=== PATIENT | male | born 1950 | race Caucasian/White ===

== ENCOUNTER 2016-07-04 14:46 | Observation (INO) | payer OTHER ==
[2016-07-04] MEDS ORDERED: ONDANSETRON 4 MG/2 ML VIAL ONE (15:04)
[2016-07-04] MEDS ORDERED: ONDANSETRON 4 MG/2 ML VIAL IVP STA (15:15)
[2016-07-04] MEDS ORDERED: NITROGLYCERIN SL 0.4 MG TABLET SL ONE (15:15)
[2016-07-04] MEDS ORDERED: SODIUM CHLORIDE 0.9% 500 ML IV ONE ×2 (15:16→17:23)
[2016-07-04] MEDS ORDERED: ASPIRIN CHEW 81 MG TABLET PO STA (15:17)
[2016-07-04] MEDS ORDERED: ASPIRIN CHEW 81 MG TABLET ONE (15:20)
[2016-07-04] MEDS ORDERED: NITROGLYCERIN SL 0.4 MG TABLET SL STA (15:35)
[2016-07-04] MEDS ORDERED: MORPHINE 10 MG/ML VIAL IVP STA ×2 (16:02→17:23)
[2016-07-04] MEDS ORDERED: MAG HYDROX/AL HYDROX/SIMETH 30 ML UDC PO STA (16:02)
[2016-07-04] MEDS ORDERED: MORPHINE 10 MG/ML VIAL ONE (16:04)
[2016-07-04] MEDS ORDERED: MAG HYDROX/AL HYDROX/SIMETH 30 ML UDC ONE (16:04)
[2016-07-04] MEDS ORDERED: IOPAMIDOL-300 100 ML VIAL IVP ONE (17:10)
[2016-07-04] MEDS ORDERED: MORPHINE 2 MG/ML SYRINGE ONE ×2 (17:24)
[2016-07-04] MEDS ORDERED: METOPROLOL 5 MG/5 ML VIAL IVP STA (18:12)
[2016-07-04] MEDS ORDERED: METOPROLOL 5 MG/5 ML VIAL IVP ONE (18:16)
[2016-07-04] MEDS ORDERED: SODIUM CHLORIDE FLUSH 0.9% 10 ML SYRINGE IVP PRN (19:00)
[2016-07-04] MEDS ORDERED: ONDANSETRON ODT 4 MG TABLET TL PRN (19:00)
[2016-07-04] MEDS ORDERED: ONDANSETRON 4 MG/2 ML VIAL IVP PRN (19:00)
[2016-07-04] MEDS ORDERED: MORPHINE 2 MG/ML SYRINGE IVP PRN (19:00)
[2016-07-04] MEDS ORDERED: NITROGLYCERIN SL 0.4 MG TABLET SL PRN ×2 (19:00)
[2016-07-04] MEDS ORDERED: SODIUM CHLORIDE 0.9% 1,000 ML IV SCH (19:00)
[2016-07-04] MEDS ORDERED: ACETAMINOPHEN 325 MG TABLET PO PRN (19:00)
[2016-07-04] MEDS ORDERED: oxyCODONE 5 MG TABLET PO PRN (19:00)
[2016-07-04] MEDS: SODIUM CHLORIDE FLUSH 0.9% 10 ML SYRINGE IVP SCH (19:47)
[2016-07-04] MEDS: PANTOPRAZOLE 40 MG TABLET PO SCH (19:47)
[2016-07-04] MEDS ORDERED: INSULIN GLARGINE 300 UNIT/3 ML PEN SUBQ SCH (21:00)
[2016-07-04] MEDS ORDERED: INSULIN ASPART 300 UNIT/3 ML PEN SUBQ SCH (21:00)
[2016-07-05] MEDS: PANTOPRAZOLE 40 MG TABLET PO SCH (06:18)
[2016-07-05] MEDS: SODIUM CHLORIDE FLUSH 0.9% 10 ML SYRINGE IVP SCH (06:37)
[2016-07-05] MEDS ORDERED: INSULIN REGULAR HUMAN 100 UNIT/1 ML 10 ML MDV SUBQ SCH (07:00)
[2016-07-05] MEDS ORDERED: LISINOPRIL 5 MG TABLET PO SCH (09:00)
[2016-07-05] MEDS ORDERED: ATORVASTATIN 40 MG TABLET PO SCH (09:00)
[2016-07-05] MEDS ORDERED: POLYETHYLENE GLYCOL 3350 17 GM PACKET PO SCH (09:00)
== END 2016-07-05 11:58 | disposition home or self-care (01) ==
DX: R07.2 Precordial pain (principal); K44.9 Diaphragmatic hernia without obstruction or gangrene; K22.8 Other specified diseases of esophagus; S22.42XA Multiple fractures of ribs, left side, initial encounter for closed fracture; W18.09XA Striking against other object with subsequent fall, initial encounter; I10 Essential (primary) hypertension; E78.5 Hyperlipidemia, unspecified; E11.65 Type 2 diabetes mellitus with hyperglycemia; R00.0 Tachycardia, unspecified; K21.9 Gastro-esophageal reflux disease without esophagitis; K76.0 Fatty (change of) liver, not elsewhere classified; E66.9 Obesity, unspecified; J44.9 Chronic obstructive pulmonary disease, unspecified; Z79.84 Long term (current) use of oral hypoglycemic drugs; Z68.31 Body mass index [BMI] 31.0-31.9, adult; Z87.891 Personal history of nicotine dependence
CPT/HCPCS: 36415; 71010; 71275; 74246; 76705; 80048; 80053; 80061; 80074; 82728; 83036; 83690; 83735; 84484; 85025; 93005; 93010; 96361; 96374; 96375; 96376; 99284; 99285; A9270; G0378; J1815; Q9967

== ENCOUNTER 2017-03-31 20:58 | Outpatient (CLI) | payer MEDICARE, OTHER | END 2017-03-31 20:59 | disposition EMS.NT | LOC: EMS 20:58 | PROVIDERS: ATTEND Surgery | DX: F10.129 Alcohol abuse with intoxication, unspecified (principal) ==

== ENCOUNTER 2018-03-29 22:13 | Emergency (ER) | payer MEDICARE, OTHER ==
[2018-03-29 22:24] VITALS: BP 164/84
--- NOTE | 2018-03-29 22:30 | ED Physician Documentation ---
PD HPI LOWER EXT INJURY - Stated complaint Stated Complaint: LF BIG TOE INJ - Chief complaint Chief Complaint: Ext Problem - History obtained from History obtained from: Patient - History of Present Illness PD HPI LOW EXT INJURY LOCATION: Left, Toe Type of injury: Fall, Blunt / blow (he struck hit toe this evening, with pain and swelling initially to it. The toe injury did lead to fall and he struck forehead lightly. Pain is improving enroute here.) Where injury occurred: Home Timing - onset: Today Timing - details: Abrupt onset Associated symptoms: Swelling. No: Weakness, Numbness Similar symptoms before: Has not had sx before Recently seen: Clinic (has been seen for low back pain on the right and has seen chiropractor as well. Pain improving slowly over the past week or so, but still hurts with ROM.) Review of Systems Musculoskeletal: reports: Back pain Neurologic: denies: Focal weakness, Numbness PD PAST MEDICAL HISTORY - Past Medical History Past Medical History: Yes Cardiovascular: None Respiratory: Asthma, COPD Endocrine/Autoimmune: Type 2 diabetes Musculoskeletal: Chronic back pain - Past Surgical History Past Surgical History: Yes - Present Medications Home Medications: Ambulatory Orders Medication Instructions Recorded Confirmed Atorvastatin Calcium [Lipitor] 40 mg PO DAILY 07/04/16 07/04/16 Fluticasone/Salmeterol [Advair 1 puffs PO DAILY 07/04/16 07/04/16 100-50 Diskus] Montelukast [Singulair] 10 mg PO DAILY 07/04/16 07/04/16 metFORMIN [Glucophage] 500 mg PO QDBREAKFAST 07/04/16 07/05/16 Lisinopril [Zestril] 2.5 mg PO DAILY #30 tablet 07/05/16 HYDROcod/ACETAM 5/325 [[place] 5/325] 1 - 2 ea PO Q6H PRN 03/29/18 03/29/18 - Allergies Allergies/Adverse Reactions: Allergies Allergy/AdvReac Type Severity Reaction Status Date / Time No Known Drug Allergies Allergy Verified 07/04/16 14:57 - Social History Does the pt smoke?: No Smoking Status: Never smoker Does the pt drink ETOH?: No Does the pt have substance abuse?: No - Immunizations Immunizations are current?: Yes PD ED PE NORMAL - Vitals Vital signs reviewed: Yes - General General: Alert and oriented X 3, No acute distress, Well developed/nourished - HEENT HEENT: Atraumatic (forehead with mild local soft tissue tenderness. ) - Neck Neck: Supple, no meningeal sign, No bony TTP - Back Back: No spinal TTP (but has some local tenderness right SI joint area that he says was bothering him prior to the injury this evening. No rash nor sores. ) - Derm Derm: Normal color, Warm and dry Results - Vitals Vitals: Vital Signs - 24 hr 03/29/18 22:21 Temperature 35.9 C L Heart Rate 88 Respiratory 18 Rate Blood Pressure 164/84 H O2 Saturation 95 Oxygen O2 Source Room air - Rads (name of study) great toe left Radiology: Prelim report reviewed, EMP read contemporaneously (dorsal chip fracture proximal part of distal phalanx. ) PD MEDICAL DECISION MAKING - ED course Complexity details: reviewed results (dorsal chip fracture of toe. ), considered differential (Great toe with some tenderness and will get xray. He is having right low back pain still and has tender spot around right SI area. I did trigger point injection with marcaine/Kenalog there tangential to his visit for the toe injury here. ), d/w patient Departure - Departure Disposition: 01 Home, Self Care Clinical Impression: Fracture of great toe Qualifiers: Encounter type: initial encounter Fracture type: closed Phalanx: distal Fracture alignment: displaced Laterality: left Qualified Code(s): S92.422A - Displaced fracture of distal phalanx of left great toe, initial encounter for closed fracture Condition: Stable Record reviewed to determine appropriate education?: Yes Instructions: ED Fx Toe Closed Follow-Up: Justino Adams DO [Primary Care Provider] - Comments: Activity as tolerated with the toe. He will be mostly tender at the first several days to week or so. He will take about a month to fully heal up and so will be tender along the way. There is just a small corner chip fracture off the middle part of the toe. It does not need fixing per se. A firm soled shoe could be used to reduce flexion and movement. Tylenol or ibuprofen if needed for pains. Use your hydrocodone pain medicine for your back as needed for the toe.
[2018-03-29] MEDS ORDERED: TRIAMCINOLONE 40 MG/ML VIAL IM STA (22:44)
[2018-03-29] MEDS ORDERED: BUPIVACAINE 0.5%-EPI 1:200000 PF 10 ML VIAL SUBQ STA (22:44)
--- NOTE | 2018-03-29 23:22 | XRAY Report ---
Reason: stubbed toe, bruised Procedure Date: 03/29/2018 Accession Number: [id number] / [id number] Procedure: XR - Toe(s) LT CPT Code: FULL RESULT: EXAM: LEFT GREAT TOE RADIOGRAPHY EXAM DATE: 03/29/2018 11:11 PM. CLINICAL HISTORY: Stubbed toe. Bruised. COMPARISON: None. TECHNIQUE: 3 views. FINDINGS: Bones: Lateral film shows a displaced dorsal corner fracture off the distal phalanx. No other bony abnormalities. Joints: Normal. No subluxations. Soft Tissues: Unremarkable. IMPRESSION: Displaced dorsal corner fracture off the distal phalanx. RADIA
== END 2018-03-29 23:32 | disposition home or self-care (01) ==
LOC: ED 22:13
DX: S92.422A Displaced fracture of distal phalanx of left great toe, initial encounter for closed fracture (principal); W22.09XA Striking against other stationary object, initial encounter; W18.30XA Fall on same level, unspecified, initial encounter; Y92.009 Unspecified place in unspecified non-institutional (private) residence as the place of occurrence of the external cause; M54.5 Low back pain; E11.9 Type 2 diabetes mellitus without complications; J44.9 Chronic obstructive pulmonary disease, unspecified; Z79.84 Long term (current) use of oral hypoglycemic drugs
CPT/HCPCS: 20552; 73660; 99282; 99283

== ENCOUNTER 2018-04-12 17:17 | Outpatient (CLI) | payer MEDICARE, OTHER ==
--- NOTE | 2018-04-13 21:33 | MRI Report ---
Reason: LUMBAR RADICULOPATHY - ?L3-L4 Procedure Date: 04/12/2018 Accession Number: [id number] / [id number] Procedure: MRI - Lumbar Spine W/O CPT Code: FULL RESULT: EXAM: MRI LUMBAR SPINE WITHOUT CONTRAST. EXAM DATE: 04/12/2018 06:49 PM. CLINICAL HISTORY: Lumbar radiculopathy - ? L3-L4. COMPARISON: None. TECHNIQUE: Multiplanar, multisequence T1-weighted and fluid-sensitive sequences of the lumbar spine from T12 to S1 without contrast. Other: None. FINDINGS: Spinal Canal: The conus terminates at L1-L2. The conus medullaris and cauda equina are unremarkable. Alignment: There is normal lumbar lordosis. There is 2 mm retrolisthesis of L2 on L3. No evidence for pars interarticularis defects. Bone Marrow: Five [id number] lumbar vertebral bodies are assumed. No gross fractures or bone lesions. No bone marrow replacement. T1 and T2 hyperintense type II endplate marrow changes along the superior L1 endplate and along L2-L3 endplates. Schmorl's node degenerative changes at the inferior L1 and L2 endplates. Minimal T2 hyperintense edema around the inferior L1 Schmorl's node. Disk Levels/Facets: T10-T11: Disk desiccation. Annular bulge. Mild canal and mild foraminal narrowing. T11-T12: Disk desiccation and annular bulge. Mild foraminal narrowing. Mild canal narrowing. T12-L1: Disk desiccation. No significant canal or foraminal narrowing. L1-L2: Disk desiccation. No significant canal or foraminal narrowing. L2-L3: Retrolisthesis. Moderate disk height loss. Annular bulge with the right foraminal/extraforaminal broad-based protrusion. Right foraminal disk extrusion cephalad to the disk level, likely impinging the right L2 nerve root, measuring 12 x 7 x 6 mm. Severe right and mild to moderate left foraminal narrowing. Mild right subarticular narrowing. No significant canal narrowing. L3-L4: Disk desiccation. Annular bulge. No significant canal narrowing. Mild foraminal narrowing. L4-L5: Disk desiccation and annular bulge. Mild to moderate bilateral foraminal narrowing. No significant canal or subarticular narrowing. L5-S1: Disk desiccation. Posterior central shallow protrusion without effacing the thecal sac. Mild foraminal narrowing. No significant canal or subarticular narrowing. Musculature: Normal. No edema or fatty atrophy. Other: The partially visualized retroperitoneum is unremarkable. IMPRESSION: 1. No marrow edema to suggest fracture. 2. Grade 1, 2 mm retrolisthesis of L2 on L3. 3. At L2-L3, annular bulge with a broad-based right foraminal/extraforaminal protrusion. There is a cephalad right foraminal disk extrusion measuring 12 x 7 x 6 mm likely impinging the right L2 nerve root, could be correlated with right L2 radiculopathy. Severe right and mild to moderate left foraminal narrowing. Comment: The following findings are so common in adults without low back pain that while we report their presence, they must be interpreted with caution and in the context of the clinical situation. (Reference Arnaudk et al, Spine 2001) Prevalence of findings in patients without low back pain: Disk degeneration (any evidence): 92% Disk desiccation/T2 signal loss: 83% Disk height loss: 56% Disk bulge: 64% Disk protrusion: 32% Annular tear/high intensity zone: 38% RADIA
== END 2018-04-12 17:18 | disposition home or self-care (01) ==
LOC: DI 17:17
PROVIDERS: ATTEND Family Medicine
DX: M51.36 Other intervertebral disc degeneration, lumbar region (principal); M51.34 Other intervertebral disc degeneration, thoracic region; M51.26 Other intervertebral disc displacement, lumbar region; M43.16 Spondylolisthesis, lumbar region; M51.27 Other intervertebral disc displacement, lumbosacral region; M48.061 Spinal stenosis, lumbar region without neurogenic claudication; M48.07 Spinal stenosis, lumbosacral region
CPT/HCPCS: 72148

== ENCOUNTER 2020-04-11 12:58 | Outpatient (CLI) | payer MEDICARE, OTHER | END 2020-04-11 12:59 | disposition home or self-care (01) | LOC: LAB 12:58 | PROVIDERS: ATTEND Family Medicine | DX: Z11.59 Encounter for screening for other viral diseases (principal); Z20.828 Contact with and (suspected) exposure to other viral communicable diseases ==

== ENCOUNTER 2020-04-27 09:31 | Outpatient (CLI) | payer MEDICARE, OTHER ==
--- NOTE | 2020-04-27 12:28 | Ultrasound Report ---
PROCEDURE: Aorta Screening INDICATIONS: AAA SCREENING, HX OF TOBACCO USE TECHNIQUE: Real time scanning was performed of the aorta and iliac arteries, with image documentatio n. COMPARISON: None FINDINGS: Aorta: Proximal aortic diameter measures 2.6 x 2.2 cm. Mid-aorta measures 2.8 x 2.8 cm. Distal aor tic diameter is 1.7 x 1.8 cm. Iliac arteries: Right common iliac artery measures 1.1 x 0.9 cm. Left common iliac artery measures 0.9 x 1.0 cm. IMPRESSION: No abdominal aortic aneurysm. Reviewed by: Camron Gonzalez on 04/27/2020 12:27 PM PST Approved by: Camron Gonzalez on 04/27/2020 12:27 PM PST Station ID: [id number]
== END 2020-04-27 09:32 | disposition home or self-care (01) ==
LOC: DI 09:31
PROVIDERS: ATTEND Physician Assistant Medical
DX: Z13.6 Encounter for screening for cardiovascular disorders (principal)

== ENCOUNTER 2020-07-20 16:47 | Outpatient (CLI) | payer MEDICARE, OTHER ==
--- NOTE | 2020-07-20 17:18 | XRAY Report ---
PROCEDURE: Chest 2 View X-Ray INDICATIONS: EMPHYSEMA, ASTHMA TECHNIQUE: 2 view(s) of the chest. COMPARISON: None. FINDINGS: Surgical changes and devices: None. Lungs and pleura: No pleural effusions or pneumothorax. Lungs are clear. Mediastinum: Mediastinal contours are normal. Heart size is normal. Bones and chest wall: No suspicious bony abnormalities. Soft tissues appear unremarkable. IMPRESSION: Normal for age, source of current symptoms is not seen. Reviewed by: Tenzin Recinos MD on 07/20/2020 5:16 PM PST Approved by: Tenzin Recinos MD on 07/20/2020 5:16 PM PST Station ID: [id number]
== END 2020-07-20 16:48 | disposition home or self-care (01) ==
LOC: DI.N 16:47
PROVIDERS: ATTEND Family Medicine
DX: J43.9 Emphysema, unspecified (principal)

== ENCOUNTER 2020-09-20 14:48 | Outpatient (CLI) | payer MEDICARE, OTHER ==
[2020-09-20 15:45] VITALS: BP 158/91
--- NOTE | 2020-09-20 15:45 | SLEEP CARE CONSULTATION ---
Information from patient questionnaire entered by Popeye Nazario. I have reviewed and concur with the information entered by Popeye Nazario. This document represents the service I personally performed and the decisions made by me, Namrata Starkey ARNP. History of Present Illness Service Date and Time: 09/20/2020 1448 Reason for Visit: New patient Chief Complaint: reports: Unrefreshed sleep, Snoring, Observed pauses in breathing, Frequent awakenings at night Date of Onset: 30 yrs Usual bedtime: 11 PM Time it takes to fall asleep: 5 min Snores at night: Yes Observed to quit breathing while asleep: Yes Sleeps alone due to snoring: Yes Number of times waking at night: Several Reasons for waking at night: reports: Snoring (infrequent), Other (Unknown) Toss, Turn, or Twitch while sleeping: Yes Recalls having dreams: Yes Usually gets out of bed at: 7 Feels refreshed in the morning: No Morning headache: No Sleepy or fatigued during the day: Yes Ever fallen asleep while driving: No Takes day naps: Yes (since weather has improved not taking naps; falls asleep TV/news) Dreams during day naps: No Prior sleep studies: Yes Year and Where: [place] 1990 Additional HPI information: I had the pleasure of seeing CAITLIN BARTHOLOMEW today regarding the possibility of him having a sleep disorder. His current complaints are snoring, unrefreshed sleep, frequent night awakenings and observed pauses in breathing. He was originally diagnosed with sleep apnea in 1990 and used a CPAP for a few weeks but was unable to tolerate it and has not been using the CPAP since 1990. He returns for reevaluation due to his 's concern that his pauses in breathing are getting longer and his oxygen level is at 95% in the morning. He is unsure if this is too low but states when he had his sleep study his oxygen level went down in the 60s. He states if he stays busy he does fine but if he sits down to watch TV and relaxes he will fall asleep. He was taking a daily nap during the winter but since the weather has been better he is out working in his yard instead of falling asleep. His father had sleep apnea and used a machine. - Parasomnia Symptoms Ever been unable to move upon waking from sleep: Yes Walks in sleep: No Talks in sleep: No Ever acted out dreams in sleep: No Ever felt weak in the knees when startled or emotional: No Bothered by creepy, crawly, restless sensations in legs: No Problems with memory or concentration: Yes Subjective Initial [place] Sleepiness Scale score: 8 (in 2020) Past Medical History Past Medical History: reports: Hypertension (in the past but got better and is not on any medications), Diabetes, Arthritis Social History The patient's occupation is a retiree. Patient is and lives in [place]. Have you smoked in the past 12 months: No Quit date: 1987 Alcohol use: Yes Alcohol amount and frequency: 6 oz, 2 or 3 times a week Caffeine use: Yes Caffeine amount and frequency: 8 cups daily Family History Family history of sleep disordered breathing: Yes Family Hx Sleep Apnea: Father: Snoring, Sleep apnea - Treated Allergies and Home Medications Drug allergies reviewed: Yes (NKDA) Home medication list reviewed: Yes Allergy and home medication list: Metformin aspirin Review of Systems Respiratory: reports: wheeze Ear/Nose/Throat: reports: dry mouth/throat, wisdom teeth removed. denies: tonsillectomy Musculoskeletal: reports: joint pain (stiffness) Physical Exam Blood Pressure: 158/91 ("hectic day") Cuff size: wrist Heart Rate: 83 O2 Saturation: 98 Height: 5 ft 10 in Weight: 221 lb Body Mass Index: 31.7 BMI Classification: Obese Heart: regular rate and rhythm Lungs: clear bilaterally Impression and Plan 1. Suspected Obstructive Sleep Apnea-Hypopnea Syndrome, as previously diagnosed in 1990 and does not have a copy of his last study. It is also suggested by a history of loud and irregular snoring, observed cessation of breath while asleep, frequent awakening during the night, unrefreshed sleep, and cognitive impairment. I recommend proceeding to polysomnography to confirm the diagnosis and to assess severity. I obtained agreement from the patient to proceed. The pathophysiology of obstructive sleep apnea-hypopnea syndrome was discussed with the patient and health risks of cardiovascular and cerebrovascular disease if not treated. Risks of drowsy driving discussed in detail and patient advised to avoid long distance driving and to chain puller at the first sign of drowsiness. Patient agreed to plan. * Schedule polysomnography +- manual CPAP titration study and return in 1-2 weeks after the study to discuss result and initiate therapy. * Avoid long distance driving or driving when feeling sleepy. * Avoid alcohol, sedative and muscle relaxant around bedtime. * Attempt to lose weight. * Review instructions provided by trained office staff on how to prepare for the sleep study. * Return for follow-up after sleep study completed. Counseling Topics: Weight loss health impact Visit Type: In Office Time Spent with Patient (minutes): 31 Provider Statement: I spent 100% of the Face to Face Visit with the patient with greater than 50% spent counseling the patient and coordination of care.
== END 2020-09-20 14:49 | disposition home or self-care (01) ==
LOC: SC 14:48
PROVIDERS: ATTEND Nurse Practitioner Family
DX: R06.81 Apnea, not elsewhere classified (principal); G47.8 Other sleep disorders; R41.89 Other symptoms and signs involving cognitive functions and awareness; R06.83 Snoring; E66.9 Obesity, unspecified; Z68.31 Body mass index [BMI] 31.0-31.9, adult; Z87.891 Personal history of nicotine dependence
CPT/HCPCS: 99203; G0463; 99212

== ENCOUNTER 2020-11-10 11:10 | Outpatient (CLI) | payer MEDICARE, OTHER ==
--- NOTE | 2020-11-10 14:05 | XRAY Report ---
PROCEDURE: Lumbar Spine 2 View INDICATIONS: ACUTE LOW BACK PAIN TECHNIQUE: 2 views of the lumbar spine were acquired. COMPARISON: None. FINDINGS: Bones: 5 [id number] vertebrae are present. There are degenerative changes at multiple levels w ith anterior osteophytes. There is disc space narrowing at L2-3. The sacroiliac joints are intact. Th ere is facet arthrosis at L5-S1. There is normal bony alignment. No vertebral body compression fract ures. No suspicious bony lesions. There is a fused osteophyte on the right at L1-2. Soft tissues: Overlying bowel gas pattern is normal. No suspicious soft tissue calcifications. IMPRESSION: Multilevel degenerative changes with disc disease at L2-3. Reviewed by: Camron Gonzalez on 11/10/2020 2:04 PM PDT Approved by: Camron Gonzalez on 11/10/2020 2:04 PM PDT Station ID: [id number]
== END 2020-11-10 11:11 | disposition home or self-care (01) ==
LOC: DI.N 11:10
PROVIDERS: ATTEND Physician Assistant
DX: M47.817 Spondylosis without myelopathy or radiculopathy, lumbosacral region (principal); M51.36 Other intervertebral disc degeneration, lumbar region; M48.061 Spinal stenosis, lumbar region without neurogenic claudication

== ENCOUNTER 2020-12-09 20:37 | Outpatient (CLI) | payer MEDICARE, OTHER | END 2020-12-09 20:38 | disposition home or self-care (01) | LOC: SC 20:37 | PROVIDERS: ATTEND Nurse Practitioner Family | DX: G47.33 Obstructive sleep apnea (adult) (pediatric) (principal) | CPT/HCPCS: 95810 ==

== ENCOUNTER 2020-12-15 15:20 | Outpatient (CLI) | payer MEDICARE, OTHER ==
--- NOTE | 2020-12-15 16:37 | SLEEP CARE CONSULTATION ---
Information from patient questionnaire entered by Jeanie Urrutia. I have reviewed and concur with the information entered by Jeanie Urrutia. This document represents the service I personally performed and the decisions made by , Namrata Starkey ARNP. History of Present Illness Service Date and Time: 12/15/2020 1520 Initial [place] Sleepiness Scale score: 8 (in 2020) Current [place] Sleepiness Scale score: 10 Additional HPI information: CAITLIN BARTHOLOMEW returns for follow up and results of the recently performed polysomnography. I explained the pathophysiology behind obstructive sleep apnea. We then spent quite a bit of time discussing different treatment options. For mild obstructive sleep apnea, surgery and oral appliance are alternatives to nasal CPAP therapy but in moderate or severe cases, nasal CPAP is the most effective and reliable treatment. Because apnea is primarily in supine position, then positional management therapy could be effective. Methods discussed such as positioning with pillows, using a T-shirt with tennis balls in the back, and shown commercial products that have a pillow format on back to prevent supine sleep. I reviewed the impact of weight changes on sleep apnea and strongly recommended losing weight. After some discussion, the patient opted to go with the nasal CPAP therapy. Nasal autoCPAP set at 4-15 cmH20 will be ordered with rationale explained. A manual titration study will be ordered if unable to find optimal pressure with office adjustments. I explained how CPAP machine works with sample devices Respironics Dreamstation and Res[employer] [id number] and what to expect when using the machine. Using CPAP every night in order to get used to it was emphasized. Patient advised to put CPAP mask on before getting into bed so as not to fall asleep without CPAP. To assist acclimation to CPAP use, it could also be used for a short time during day while reading or watching TV. The patient was instructed to call the CPAP supplier to discuss any mechanical problem that may occur. If the mask given is uncomfortable or is difficult to keep on through the night even with adjustment, contact the CPAP supplier as many will replace with another mask style if notified before 30 days. If snoring or perceives is not getting enough air or too much air from the machine, notify this office. [facility] patient education PAP tips reviewed and given to patient. Patient was cautioned about risks of drowsy driving until sleepiness symptoms resolve. Sleep Study - Results Type of Sleep Study: Polysomnography Prior sleep studies: Yes Year and Where: 2020 - [facility]; 1990 - [place], [place] Polysomnography/Home Sleep Study results: IMPRESSION: The quality of the study is good. The patient had reduced sleep efficiency as the patient was awake almost throughout the second half of the night. The sleep architecture was 32.5 7.1 1.7. Respiratory monitoring showed severe obstructive sleep apnea-hypopnea (AHI = 32.0) associated with frequent arousals, oxyhemoglobin desaturation and mild hypoxia (catherine oxygen saturation of 85%). The respiratory events occurred more frequently during supine sleep (supine AHI = 51.1; non-supine = 21.85). Snore was light to moderate in intensity. There was no significant periodic leg movement of sleep. Cardiac rhythm was normal sinus rhythm with frequent premature ventricular and atrial contractions. No abnormal behavior (parasomnia) observed during the night. Allergies and Home Medications Home medication list reviewed: Yes (no changes) Review of Systems Review of systems same as previous: Yes (no changes) Physical Exam Heart Rate: 88 O2 Saturation: 95 Height: 5 ft 10 in Weight: 218 lb Body Mass Index: 31.2 BMI Classification: Obese Impression and Plan 1. Obstructive Sleep Apnea-Hypopnea Syndrome, severe, with lowest oxygen saturation of 85%. Obviously this is the cause of the patients symptoms of unrefreshed sleep, and excessive daytime sleepiness. Positive pressure therapy could benefit diabetes. As mentioned above, the patient will be started on nasal autoCPAP therapy with pressure set at 4-15 cmH2O. A manual titration study will be completed if unable to find optimal treatment pressure with office adjustments. Compliance guidelines also reviewed. A copy of compliance guidelines will be given for reference at check out. 2. Hypoxia, mild. Patient had a catherine oxygen saturation of 85% with a total of 1.40 minutes spent under 89%. His oxygen saturation was normal with an average oxygen saturation of 94%. * Nasal auto CPAP therapy, pressure at 4-15 cm H2O. * Attempt to lose weight. * Avoid alcohol consumption near bedtime. * Avoid supine sleep until using CPAP. * The patient is again cautioned about driving until sleepiness completely resolves. * Return one month after CPAP obtained. I will assess response to therapy and compliance at that time. Counseling Topics: Weight loss health impact Visit Type: In Office Time Spent with Patient (minutes): 21 Provider Statement: I spent 100% of the Face to Face Visit with the patient with greater than 50% spent counseling the patient and coordination of care.
== END 2020-12-15 15:21 | disposition home or self-care (01) ==
LOC: SC 15:20
PROVIDERS: ATTEND Nurse Practitioner Family
DX: G47.33 Obstructive sleep apnea (adult) (pediatric) (principal); R09.02 Hypoxemia; E66.9 Obesity, unspecified; Z68.31 Body mass index [BMI] 31.0-31.9, adult
CPT/HCPCS: 99213; G0463; 99212

== ENCOUNTER 2021-02-14 15:15 | Outpatient (CLI) | payer MEDICARE, OTHER ==
--- NOTE | 2021-02-14 15:46 | SLEEP CARE CONSULTATION ---
Information from patient questionnaire entered by Popeye Nazario. I have reviewed and concur with the information entered by Popeye Nazario. This document represents the service I personally performed and the decisions made by , Namrata Starkey ARNP. History of Present Illness Service Date and Time: 02/14/2021 1515 Previous diagnosis: Severe, Obstructive Sleep Apnea-Hypopnea Syndrome AHI: 32.0 Reason for follow up: first compliance (Set up 01/09/21) Equipment type: CPAP Equipment obtained from: Other ([facility]; got initial supplies) Mask style: Nasal pillows Backup mask available: No (will keep old mask when replaced) Last cushion change: 1 month Prior sleep studies: Yes Year and Where: 2020 - [facility]; 1990 - [place], [place] Type of Sleep Study: Polysomnography HPI additional information: CAITLIN BARTHOLOMEW was diagnosed to have severe, AHI 32.0, obstructive sleep apnea-hypopnea syndrome and returned today for CPAP therapy first compliance follow-up. CPAP Compliance Data - Data Reviewed with Patient Average duration of nightly device use: 8 h 39 min Compliance rate %: 100 Current pressure setting (cmH2O): 4-15 (median 7.4, avg 10.1, max 11.8) Average residual AHI: 9.3 Central apnea: 5.0 Obstructive apnea: 3.2 Subjective Patient concerns: reports: air blowing in eyes, dry mouth, nose, throat (little bit dry mouth). denies: aerophagia, mask discomfort, mask leak noise, condensation in mask/hose, nasal congestion, epistaxis, other Observed to snore while using device: No Current pressure setting perceived as: comfortable On therapy, patient: reports: awakening more refreshed (some mornings). denies: drowsiness while driving Initial [place] Sleepiness Scale score: 8 (in 2020) Current [place] Sleepiness Scale score: 7 Allergies and Home Medications Home medication list reviewed: Yes (no changes) Review of Systems Review of systems same as previous: Yes (no changes) Physical Exam Heart Rate: 75 O2 Saturation: 98 Height: 5 ft 10 in Weight: 220 lb Body Mass Index: 31.5 BMI Classification: Obese Impression and Plan 1. Obstructive Sleep Apnea-Hypopnea Syndrome, severe, with excellent treatment compliance and fair apnea control with elevated residual AHI. On CPAP therapy, the patient has better sleep quality and is more rested overall. Patient's residual including central apneas at 5.0 and obstructive apneas at 3.2. The patients pressure will be changed to autoCPAP 7-9 cmH20 for elevation of residual AHI. Patient advised to contact me if pressure change is uncomfortable so that it can be adjusted. Goals for apnea control discussed. Patient states the he lost and then gained 10 pounds since his last visit. Patient was encouraged to try to lose weight for their overall health and to reduce apneas. Patient's apnea severity and rationale for treatment to reduce apnea, improve sleep quality and reduce cardiovascular and cerebrovascular events was reviewed. I also reviewed the benefit of consistent device use of CPAP for diabetes. * Change auto CPAP pressure to 7-9 cmH2O * Notify me if snoring with mask or feeling that the pressure is too much or too little * Continue to try to lose weight * Call this office if any problems using CPAP * Return for follow up in 1-2 months, or sooner if concerns arise Counseling Topics: Spare mask, Weight loss health impact Visit Type: In Office Time Spent with Patient (minutes): 17 Provider Statement: I spent 100% of the Face to Face Visit with the patient with greater than 50% spent counseling the patient and coordination of care.
== END 2021-02-14 15:16 | disposition home or self-care (01) ==
LOC: SC 15:15
PROVIDERS: ATTEND Nurse Practitioner Family
DX: G47.33 Obstructive sleep apnea (adult) (pediatric) (principal); E66.9 Obesity, unspecified; Z68.31 Body mass index [BMI] 31.0-31.9, adult
CPT/HCPCS: 99212; G0463

== ENCOUNTER 2021-04-19 13:17 | Outpatient (CLI) | payer MEDICARE, OTHER ==
[2021-04-19 13:55] VITALS: BP 124/78
--- NOTE | 2021-04-19 13:55 | SLEEP CARE CONSULTATION ---
Information from patient questionnaire entered by Hubert Irvin MA. I have reviewed and concur with the information entered by Huebrt Irvin MA. This document represents the service I personally performed and the decisions made by , Namrata Starkey ARNP. History of Present Illness Service Date and Time: 04/19/2021 1317 Previous diagnosis: Severe, Obstructive Sleep Apnea-Hypopnea Syndrome AHI: 32.0 (2020 [facility]) Reason for follow up: other (two month f/u, pressure change) Equipment type: CPAP Equipment obtained from: Other ([facility]; getting supplies) Mask style: Nasal pillows Backup mask available: No (will keep old mask when replaced) Last cushion change: yesterday Prior sleep studies: Yes Year and Where: 2020 - [facility]; 1990 - [place], [place] Type of Sleep Study: Polysomnography HPI additional information: CAITLIN BARTHOLOMEW was diagnosed to have severe, AHI 32.0, obstructive sleep apnea-hypopnea syndrome and returned today for CPAP therapy 2 month pressure change follow-up. Sleep Study - Results Type of Sleep Study: Polysomnography Prior sleep studies: Yes Year and Where: 2020 - [facility]; 1989 [place], [place] CPAP Compliance Data - Data Reviewed with Patient Average duration of nightly device use: 6 hours 46 minutes Compliance rate %: 92 Current pressure setting (cmH2O): 7 - 9 ( median 8.3, avg 8.9, max 8.9) Average residual AHI: 6.6 Central apnea: 2.2 Obstructive apnea: 3.1 Subjective Patient concerns: reports: dry mouth, nose, throat. denies: aerophagia, mask discomfort, air blowing in eyes, mask leak noise, condensation in mask/hose, nasal congestion, epistaxis, other Observed to snore while using device: No Current pressure setting perceived as: too high On therapy, patient: reports: other (not recently due to pressure feeling too high). denies: drowsiness while driving Initial [place] Sleepiness Scale score: 8 (in 2020) Current [place] Sleepiness Scale score: 7 (in 2020) Allergies and Home Medications Home medication list reviewed: Yes (no changes) Review of Systems Review of systems same as previous: Yes (no changes) Physical Exam Vital signs obtained and entered by: Claudia Irvin CMA AAFL Blood Pressure: 124/78 (left) Cuff size: wrist Heart Rate: 71 O2 Saturation: 97 (with mask) Height: 5 ft 10 in Weight: 220 lb Body Mass Index: 31.5 BMI Classification: Obese Impression and Plan 1. Obstructive Sleep Apnea-Hypopnea Syndrome, severe, with good treatment compliance and fair apnea control with mildly elevated AHI. On CPAP therapy, the patient has better sleep quality and is more rested overall. The patient feels the pressure is too high since the last adjustment and he is having difficulty using his machine. Last night he could not make it to four hours because the pressure felt too high. The patients pressure will be changed to autoCPAP 5-15 cmH20 for elevation of residual AHI and patient comfort. Patient advised to contact me if pressure change is uncomfortable so that it can be adjusted. Goals for apnea control discussed. Patient's apnea severity and rationale for treatment to reduce apnea, improve sleep quality and reduce cardiovascular and cerebrovascular events was reviewed. I also reviewed the benefit of consistent device use of CPAP for diabetes. Patient was encouraged to lose weight for their overall health and to reduce apneas. * Change auto CPAP pressure to 5-15 cmH2O * Notify me if snoring with mask or feeling that the pressure is too much or too little * Attempt to lose weight * Call this office if any problems using CPAP * Return for follow up in 3 months, or sooner if concerns arise Counseling Topics: Spare mask, Weight loss health impact Visit Type: In Office Time Spent with Patient (minutes): 21 Provider Statement: I spent 100% of the Face to Face Visit with the patient with greater than 50% spent counseling the patient and coordination of care.
== END 2021-04-19 13:18 | disposition home or self-care (01) ==
LOC: SC 13:17
PROVIDERS: ATTEND Nurse Practitioner Family
DX: G47.33 Obstructive sleep apnea (adult) (pediatric) (principal); E66.9 Obesity, unspecified; Z68.31 Body mass index [BMI] 31.0-31.9, adult
CPT/HCPCS: 99213; G0463; 99212

== ENCOUNTER 2021-07-19 14:59 | Outpatient (CLI) | payer MEDICARE, OTHER ==
[2021-07-19 15:40] VITALS: BP 138/73
--- NOTE | 2021-07-19 15:40 | SLEEP CARE CONSULTATION ---
Information from patient questionnaire entered by Hubert Irvin MA. I have reviewed and concur with the information entered by Hubret Irvin MA. This document represents the service I personally performed and the decisions made by , Namrata Starkey ARNP. History of Present Illness Service Date and Time: 07/19/2021 1459 Previous diagnosis: Severe, Obstructive Sleep Apnea-Hypopnea Syndrome AHI: 32.0 Reason for follow up: three month (PRESSURE CHANGE) Equipment type: CPAP Equipment obtained from: Other ([facility]; getting supplies) Mask style: Nasal pillows Backup mask available: Yes (old mask) Last cushion change: last night Prior sleep studies: Yes Year and Where: 2020 - [facility]; 1990 - [place], [place] Type of Sleep Study: Polysomnography HPI additional information: CAITLIN BARTHOLOMEW was diagnosed to have severe, AHI 32.0, obstructive sleep apnea-hypopnea syndrome and returned today for CPAP therapy 3 month with pressure change follow-up. Sleep Study - Results Type of Sleep Study: Polysomnography Prior sleep studies: Yes Year and Where: 2020 - [facility]; 1989 [place], [place] CPAP Compliance Data - Data Reviewed with Patient Average duration of nightly device use: 5 HOURS 38 MINUTES Compliance rate %: 80 Current pressure setting (cmH2O): 5-15 (median 8.1, avg 10.8, max 12.0) Average residual AHI: 6.9 Central apnea: 2.2 Obstructive apnea: 3.2 Average large leak: 17.0 Subjective Missed days of use due to: reports: mask issues Patient concerns: reports: mask discomfort, dry mouth, nose, throat (dry mouth). denies: aerophagia, air blowing in eyes, mask leak noise, condensation in mask/hose, nasal congestion, epistaxis Observed to snore while using device: No Current pressure setting perceived as: comfortable (at times, but sometimes too high) On therapy, patient: reports: other (He does not feel he is sleeping better or as much with the CPAP). denies: drowsiness while driving Initial [place] Sleepiness Scale score: 8 (in 2020) Current [place] Sleepiness Scale score: 9 (2021) Allergies and Home Medications Known drug allergies: No Drug allergies reviewed: Yes Home medication list reviewed: Yes (no changes) Allergy and home medication list: Allergies No Known Drug Allergies Allergy (Verified 07/04/16 14:57) Review of Systems Review of systems same as previous: Yes (changes) Physical Exam Vital signs obtained and entered by: ROSALES KLEIN Blood Pressure: 138/73 (RIGHT, PULSE 82, RESP 16,) Heart Rate: 80 O2 Saturation: 96 (PAPER MASK) Height: 5 ft 10 in Weight: 215 lb Weight change since last visit: 5 lb loss Body Mass Index: 30.8 BMI Classification: Obese Impression and Plan 1. Obstructive Sleep Apnea-Hypopnea Syndrome, severe, with good treatment compliance and fair apnea control with mild elevation of residual AHI. The patients pressure will be changed to autoCPAP 9-11 cmH20 for elevation of residual AHI and patient comfort. Patient advised to contact me if pressure change is uncomfortable so that it can be adjusted. Goals for apnea control disc ussed.Patient has not felt that he is more rested or sleeping better since he started using the CPAP. He states that he is woken up more often due to mask leaks to adjust his mask. He likes to sleep on his side and the nasal pillows mask will leak more when on his side. I advised the patient that he can try a CPAP pillow to reduce mask leaks when side sleeping. He also states he used to sleep for 8 hours or more nightly but with the CPAP he gets just under 6 hours a night. He is still trying to use the CPAP nightly despite feeling more tired with using it. He also gets some oral dryness. Oral dryness can be reduced by adjusting humidity setting higher or heated hose lower or by adjusting both settings. Verbal instructions given on how to change humidity and heated hose settings with rationale explaining why to change. He voiced understanding. He states he will try the CPAP pillow but if this does not do enough he may try to change to a Dreamwear Wisp mask as well to be able to sleep more comfortably and longer. I agreed this is a good plan. Patient's apnea severity and rationale for treatment to reduce apnea, improve sleep quality and reduce cardiovascular and cerebrovascular events was reviewed. I also reviewed the benefit of consistent device use of CPAP for diabetes. 2. Obesity, unspecified. Patient has lost weight. Currently patients BMI is 30.8. Obesity increases the risk of apnea, CPAP pressure requirements and overall health risks especially cardiovascular and diabetes. Thus patient is advised to try to lose weight. Weight loss can be done with reducing portion si ze, reducing refined foods and balancing content with vegetables, fruit and whole grain foods. In addition, patient encouraged to get regular exercise. * Change auto CPAP pressure to 9-11 cmH2O * Notify me if snoring with mask or feeling that the pressure is too much or too little * Attempt to lose weight * Call this office if any problems using CPAP * Return for follow up in 3 months, or sooner if concerns arise Counseling Topics: Spare mask, Weight loss health impact Visit Type: In Office Time Spent with Patient (minutes): 26 Provider Statement: I spent 100% of the Face to Face Visit with the patient with greater than 50% spent counseling the patient and coordination of care.
== END 2021-07-19 15:00 | disposition home or self-care (01) ==
LOC: SC 14:59
PROVIDERS: ATTEND Nurse Practitioner Family
DX: G47.33 Obstructive sleep apnea (adult) (pediatric) (principal); E66.9 Obesity, unspecified; Z68.30 Body mass index [BMI] 30.0-30.9, adult
CPT/HCPCS: 99213; G0463; 99212

== ENCOUNTER 2021-10-17 15:19 | Outpatient (CLI) | payer MEDICARE, OTHER ==
[2021-10-17 15:50] VITALS: BP 153/78
--- NOTE | 2021-10-17 15:50 | SLEEP CARE CONSULTATION ---
Information from patient questionnaire entered by Hubert Irvin MA. I have reviewed and concur with the information entered by Hubert Irvin MA. This document represents the service I personally performed and the decisions made by , Namrata Starkey ARNP. History of Present Illness Service Date and Time: 10/17/2021 1519 Previous diagnosis: Severe, Obstructive Sleep Apnea-Hypopnea Syndrome AHI: 32.0 (2020 [facility]) Reason for follow up: three month (pressure change,) Equipment type: CPAP Equipment obtained from: Other ([facility]; getting supplies) Mask style: Nasal pillows Backup mask available: Yes Last cushion change: 2-3 weeks Prior sleep studies: Yes Year and Where: 2020 - [facility]; [address] [place], [place] Type of Sleep Study: Polysomnography HPI additional information: CAITLIN BARTHOLOMEW was diagnosed to have severe, AHI 32.0, obstructive sleep apnea-hypopnea syndrome and returned today for CPAP therapy three month with pressure change follow-up. Sleep Study - Results Type of Sleep Study: Polysomnography Prior sleep studies: Yes Year and Where: 2020 - [facility]; [address] [place], [place] CPAP Compliance Data - Data Reviewed with Patient Average duration of nightly device use: 6 HOURS AND 9 MINUTES Compliance rate %: 73 (90 day; usage) Current pressure setting (cmH2O): 9-11 Average residual AHI: 6.9 Central apnea: 3.7 Obstructive apnea: 2.0 Average large leak: 19.9 Subjective Patient concerns: reports: dry mouth, nose, throat. denies: aerophagia, mask discomfort, air blowing in eyes, mask leak noise, condensation in mask/hose, nasal congestion, epistaxis, other Observed to snore while using device: No Current pressure setting perceived as: comfortable On therapy, patient: reports: sleeping better, awakening more refreshed, being more awake and alert during the day, more rested overall. denies: drowsiness while driving Initial [place] Sleepiness Scale score: 8 (in 2020) Current [place] Sleepiness Scale score: 6 (09/2021) Allergies and Home Medications Known drug allergies: No Drug allergies reviewed: Yes Home medication list reviewed: Yes (no changes) Allergy and home medication list: Allergies No Known Drug Allergies Allergy (Verified 07/04/16 14:57) Review of Systems Review of systems same as previous: Yes (no changes) Physical Exam Vital signs obtained and entered by: ROSALES KLEIN Blood Pressure: 153/78 (PULSE 87, RESP 20, LEFT X 2) Heart Rate: 86 O2 Saturation: 98 (PAPER MASK) Height: 5 ft 10 in Weight: 215 lb Body Mass Index: 30.8 BMI Classification: Obese Impression and Plan 1. Obstructive Sleep Apnea-Hypopnea Syndrome, severe, with good treatment compliance and fair apnea control with mild elevation of residual AHI. On CPAP therapy, the patient has better sleep quality and is more rested overall. Patient has a mildly elevated AHI. He states he has gotten used to the pressure and feels like he is getting good rest and waking up feeling rested. He would like to continue pressure at current settings. Even though the current pressure settings are mildly inefficient he is getting good results so we will continue at 9-11 cmH2O. He has had a little oral dryness. Oral dryness can be reduced by adjusting humidity setting higher or heated hose lower or by adjusting both settings. Verbal instructions given on how to change humidity and heated hose settings with rationale explaining why to change. Patient denies problems with nasal congestion, epistaxis, skin irritation or aerophagia. Patient's apnea severity and rationale for treatment to reduce apnea, improve sleep quality and reduce cardiovascular and cerebrovascular events was reviewed. I also reviewed the benefit of consistent device use of CPAP for diabetes. Patient encouraged to try to lose weight. * Continue auto CPAP pressure at 9-11 cmH2O * Notify me if snoring with mask or feeling that the pressure is too much or too little * Attempt to lose weight * Call this office if any problems using CPAP * Return for follow up in 6 months, or sooner if concerns arise Counseling Topics: Spare mask, Weight loss health impact Visit Type: In Office Time Spent with Patient (minutes): 14 Provider Statement: I spent 100% of the Face to Face Visit with the patient with greater than 50% spent counseling the patient and coordination of care.
== END 2021-10-17 15:20 | disposition home or self-care (01) ==
LOC: SC 15:19
PROVIDERS: ATTEND Nurse Practitioner Family
DX: G47.33 Obstructive sleep apnea (adult) (pediatric) (principal); E66.9 Obesity, unspecified; Z68.30 Body mass index [BMI] 30.0-30.9, adult
CPT/HCPCS: 99212; G0463

== ENCOUNTER 2022-05-17 06:26 | Day surgery (SDC) | payer MEDICARE, OTHER ==
[2022-05-17] MEDS ORDERED: LACTATED RINGERS 1,000 ML IV ONE (06:30)
--- NOTE | 2022-05-17 07:22 | ANESTHESIA ---
Pre-Anesthesia VS, & Labs - Diagnosis history of polyps - Procedure colonoscopy Vital Signs: Temp Pulse Resp BP Pulse Ox O2 Flow Rate 36.3 C L 101 H 14 162/92 H 100 05/17/22 06:30 05/17/22 06:30 05/17/22 06:30 05/17/22 06:30 05/17/22 06:30 Height: 5 ft 10 in Weight (kg): 99 kg Body Mass Index: 31.3 BMI Classification: Obese - NPO Other (prep as directed) - Lab Results Current Lab Results: Laboratory Tests 05/17/22 06:52: POC Whole Bld Glucose 180 H Home Medications and Allergies metFORMIN [Glucophage] 500 mg PO QDBREAKFAST 07/04/16 Allergies/Adverse Reactions: Allergies Allergy/AdvReac Type Severity Reaction Status Date / Time No Known Drug Allergies Allergy Verified 07/04/16 14:57 Anes History & Medical History - Anesthetic History Anesthesia Complications: reports: No previous complications - Medical History Cardiovascular: reports: None Pulmonary: reports: Sleep apnea Gastrointestinal: reports: Colon polyps Urinary: reports: None Musculoskeletal: reports: Osteoarthritis Endocrine/Autoimmune: reports: Type 2 diabetes Skin: reports: None Smoking Status: Never smoker - Surgical History General: reports: Colonoscopy Exam General: Alert, Oriented x3 Dental: WNL Mallampati classification: II Thyromental Distance: greater than 6 cm Respiratory: Lungs clear Cardiovascular: Regular rate Plan Anesthesia Type: Total IV Consent for Procedure(s) Verified and Reviewed: Yes Code Status: Attempt Resuscitation ASA classification: 3-Severe systemic disease Is this case an emergency?: No
[2022-05-17] MEDS ORDERED: PROPOFOL 500 MG/50 ML 500 MG/50 ML VIAL ONE (07:39)
[2022-05-17] MEDS ORDERED: SIMETHICONE 40 MG/0.6 ML 30 ML BOTTLE PO ONE (07:39)
[2022-05-17] MEDS ORDERED: LACTATED RINGERS 800 ML IV ONE (08:04)
[2022-05-17 08:48] VITALS: BP 132/60
--- NOTE | 2022-05-17 16:07 | ANESTHESIA POST OP EVALUATION ---
Anesthesia Post Eval - Post Anesthesia Eval Vitals: Last Vital Signs Temp 36.5 C 05/17/22 08:30 Pulse 90 05/17/22 08:30 Resp 22 05/17/22 08:30 BP 132/60 H 05/17/22 08:30 Pulse Ox 98 05/17/22 08:30 O2 Flow Rate CV Function Including HR & BP: Stable Pain Control: Satisfactory Nausea & Vomiting: Negative Mental Status: Baseline Respiratory Status: Airway Patent Hydration Status: Satisfactory Anesthesia Complications: None
== END 2022-05-17 06:27 | disposition home or self-care (01) ==
LOC: SDS 06:26
PROVIDERS: ATTEND Surgery
PROC: 0DBM8ZZ Excision of Descending Colon, Via Natural or Artificial Opening Endoscopic (ICD-10-PCS; principal; 2022-05-17 07:30)
DX: Z12.11 Encounter for screening for malignant neoplasm of colon (principal); D12.4 Benign neoplasm of descending colon; K57.30 Diverticulosis of large intestine without perforation or abscess without bleeding; E66.9 Obesity, unspecified; Z68.31 Body mass index [BMI] 31.0-31.9, adult; E11.9 Type 2 diabetes mellitus without complications; G47.30 Sleep apnea, unspecified; J43.9 Emphysema, unspecified
CPT/HCPCS: 45385; A9270; J7120

== ENCOUNTER 2022-12-26 08:00 | Outpatient (CLI) | payer MEDICARE, OTHER ==
--- NOTE | 2022-12-26 13:37 | XRAY Report ---
PROCEDURE: Hand 3 View RT INDICATIONS: RIGHT HAND PAIN TECHNIQUE: 3 views of the hand(s) acquired. COMPARISON: None. FINDINGS: Bones: No fractures or dislocations. No suspicious bony lesions. No visualized osseous or soft ti ssue abnormality within the region of concern at the distal aspect of the proximal first phalanx Soft tissues: No suspicious soft tissue calcifications or masses. IMPRESSION: No acute bony or soft tissue abnormality. If concern persists, CT or MRI is recommended. Reviewed by: Michelle Echavarria MD on 12/26/2022 1:35 PM PDT Approved by: Michelle Echavarria MD on 12/26/2022 1:35 PM PDT Station ID: [id number]
== END 2022-12-26 23:59 | disposition home or self-care (01) ==
LOC: DI.WOS 08:00
PROVIDERS: ATTEND Physician Assistant Surgical
DX: M79.642 Pain in left hand (principal)

== ENCOUNTER 2023-04-11 14:39 | Emergency (ER) | payer MEDICARE, OTHER ==
[2023-04-11 14:57] VITALS: BP 163/77; O2SAT 96
--- NOTE | 2023-04-11 15:32 | XRAY Report ---
PROCEDURE: Ribs w/PA Chest LT INDICATIONS: fall, L rib pain TECHNIQUE: 4 views of the left ribs were acquired, along with a single view chest. COMPARISON: 07/20/2020 chest films FINDINGS: Surgical changes and devices: None. Bones and chest wall: No fractures or dislocations. No suspicious bony lesions. Overlying soft tis sues appear unremarkable. Lungs and pleura: No pleural effusions or pneumothorax. Lungs appear clear. Mediastinum: Mediastinal contours appear normal. Heart size is normal. IMPRESSION: No displaced rib fracture or underlying pulmonary process. Reviewed by: Myron Carbajal MD on 04/11/2023 3:30 PM PST Approved by: Myron Carbajal MD on 04/11/2023 3:30 PM PST Station ID: [id number]
--- NOTE | 2023-04-11 15:33 | XRAY Report ---
PROCEDURE: Hip w/Pelvis 2-3V RT INDICATIONS: R hip pain s/p fall TECHNIQUE: AP pelvis with AP and lateral view(s) of the right hip(s). COMPARISON: None. FINDINGS: Bones: No fractures or dislocations. No suspicious bony lesions. Soft tissues: No suspicious soft tissue calcifications or masses. IMPRESSION: No acute bony abnormality. Reviewed by: Myron Carbajal MD on 04/11/2023 3:31 PM PST Approved by: Myron Carbajal MD on 04/11/2023 3:31 PM PST Station ID: [id number]
--- NOTE | 2023-04-11 15:42 | ED Physician Documentation ---
PD HPI MAJOR TRAUMA - Stated complaint Stated Complaint: GLF LT SIDE PX - Chief complaint Chief Complaint: Trauma Ch/Bk - History obtained from History obtained from: Patient - History of Present Illness Mechanism of injury: Fell - Additional information Additional information: 2 days ago he was carrying a bag in his left hand and he hit an uneven part of the asphalt on the sidewalk and tripped and fell forward hitting his left rib on the asphalt. Was not too bad but has developed more severe left rib pain from this. Also has some chronic left hip pain which he does not think is related to the fall. PD PAST MEDICAL HISTORY - Past Medical History Cardiovascular: None Respiratory: Sleep apnea Endocrine/Autoimmune: Type 2 diabetes GI: Colon polyps : None HEENT: None Psych: None Musculoskeletal: Osteoarthritis Derm: None - Past Surgical History Past Surgical History: Yes General: Colonoscopy - Present Medications Home Medications: Ambulatory Orders Medication Instructions Recorded Confirmed metFORMIN [Glucophage] 500 mg PO QDBREAKFAST 07/04/16 05/17/22 HYDROcod/ACETAM 5/325 [[place] 5/325] 1 - 2 tab PO Q6H PRN #20 tablet 04/11/23 Lidocaine Patch 5% [Lidoderm Patch] 1 patch TOP DAILY PRN #10 patch 04/11/23 - Allergies Allergies/Adverse Reactions: Allergies Allergy/AdvReac Type Severity Reaction Status Date / Time No Known Drug Allergies Allergy Verified 07/04/16 14:57 - Social History Does the pt smoke?: No Smoking Status: Never smoker Does the pt drink ETOH?: No Does the pt have substance abuse?: No - Immunizations Immunizations are current?: Yes PD ED PE NORMAL - Vitals Vital signs reviewed: Yes - General General: Alert and oriented X 3, No acute distress - HEENT HEENT: PERRL, EOMI - Neck Neck: Supple, no meningeal sign, No bony TTP - Cardiac Cardiac: RRR, No murmur - Respiratory Respiratory: No respiratory distress, Clear bilaterally, Other (Focally tender over rib 10 anterior axillary line on the left.) - Abdomen Abdomen: Non tender - Back Back: No CVA TTP, No spinal TTP - Derm Derm: Normal color, Warm and dry - Neuro Neuro: Alert and oriented X 3, Normal speech Results - Vitals Vitals: Vital Signs - 24 hr 04/11/23 14:45 Temperature 36.2 C L Heart Rate 86 Respiratory 18 Rate Blood Pressure 163/77 H O2 Saturation 96 Oxygen O2 Source Room air - Rads (name of study) Rib and hip x-rays officially read as negative. I do believe there is probably a hairline fracture of the left 10th rib on my personal read. Relevant Findings:: Final report received, EMP independent interpretation of test PD Medical Decision Making - ED course ED course: To my eye it looks like he does have a nondisplaced left 10th rib fracture. We will do some pain control. Advised on follow-up and return precautions as well as expected course of healing. Departure - Departure Disposition: Home, Self Care Clinical Impression: Fracture of rib Condition: Good Record reviewed to determine appropriate education?: Yes Instructions: ED Fx Rib Prescriptions: Lidocaine Patch 5% [Lidoderm Patch] 1 patch TOP DAILY PRN #10 patch PRN Reason: pain HYDROcod/ACETAM 5/325 [[place] 5/325] 1 - 2 tab PO Q6H PRN #20 tablet PRN Reason: Pain Comments: As discussed, although the official read from the radiologist did not note a rib fracture, I do believe you have a hairline fracture of the left 10th rib which corresponds to the area of your maximum pain. I sent a prescription for some pain medication and lidocaine patches up to [facility] in [place]. Call your doctor to arrange a follow-up appointment, make the next available appointment. In the interim, return anytime if worse or if new symptoms develo p. I am prescribing a short course of narcotic pain medication for you. These are potentially dangerous and addictive medications that should be used carefully. These medications may constipate you. Take an itst-emq-dxcotan stool softener (docusate) twice daily with plenty of water while taking these medications. If you go 24 hours without a bowel movement, take ypax-gem-[id number] miralax, per package instructions. Do not drink or drive while taking these medications. If you received narcotic or sedating medications while in the emergency department, do not drive for 24 hours. Store this medication in a safe, secure place and out of reach of children. It is a violation of federal law to give or sell this medication to another person or to use in a manner other than prescribed. The ED will not refill narcotic prescriptions, including prescriptions lost or stolen. To dispose of unwanted medications: 1. [employer] provides a drop box for medication in pill form only (no liquids) 8:00 am to 4:30 p.m. Saturday-Saturday in the lobby of the [facility], [address] [place] [address]. Empty pills into ziplock bag before disposal. Call [phone] for information. 2.[employer] is a free service available to all [facility] residents. Go to [email or web address] Note that many narcotic pain relievers also contain Tylenol/acetaminophen. Please ensure that your total dose of acetaminophen from all sources does not exceed 3 g (3000 mg) per day. Forms: PCP List
== END 2023-04-11 15:47 | disposition home or self-care (01) ==
LOC: ED 14:39
DX: S22.32XA Fracture of one rib, left side, initial encounter for closed fracture (principal); W01.0XXA Fall on same level from slipping, tripping and stumbling without subsequent striking against object, initial encounter; E11.9 Type 2 diabetes mellitus without complications; Z79.84 Long term (current) use of oral hypoglycemic drugs
CPT/HCPCS: 99284

== ENCOUNTER 2023-04-24 13:43 | Outpatient (CLI) | payer MEDICARE, OTHER ==
--- NOTE | 2023-04-24 14:13 | Sleep Patient Instructions ---
Sleep Center Visit Summary - Patient Visit Information Reason for Visit: Annual Visit - Patient Instructions Additional Instructions: You will continue with CPAP therapy with pressure set at 9-11 cmH2O. A supply prescription will be updated with your DME. We encourage you to continue to try to lose weight. Please follow up with the sleep care office in 1 year. - Clinic Information Contact: [facility] [address] [place] [address] [email or web address] T: [phone]
--- NOTE | 2023-04-24 14:17 | SLEEP CARE CONSULTATION ---
Information from patient questionnaire entered by [place]. I have reviewed and concur with the information entered by [place]. This document represents the service I personally performed and the decisions made by , Namrata Starkey ARNP. History of Present Illness Service Date and Time: 04/24/2023 1343 Previous diagnosis: Severe, Obstructive Sleep Apnea-Hypopnea Syndrome AHI: 32.0 (2020 [facility]) Reason for follow up: annual (LAST SEEN 09/2021) Equipment type: CPAP (RESMED Airsense 10; 12/2020) Equipment obtained from: Other ([facility]; getting supplies) Mask style: Nasal pillows Backup mask available: No Last cushion change: 2 months Prior sleep studies: Yes Year and Where: 2020 - [facility]; 1990 - [place], [place] Type of Sleep Study: Polysomnography HPI additional information: CAITLIN BARTHOLOMEW was diagnosed to have severe, AHI 32, obstructive sleep apnea- hypopnea syndrome and returned today for CPAP therapy annual follow-up. Sleep Study - Results Type of Sleep Study: Polysomnography Prior sleep studies: Yes Year and Where: 2020 - [facility]; 1990 - [place], [place] CPAP Compliance Data - Data Reviewed with Patient Average duration of nightly device use: 5 HRS 45 MINS Compliance rate %: 70 (04/22/2022-04/21/23; 313/365 days used) Current pressure setting (cmH2O): 9-11 Average residual AHI: 3.1 Central apnea: 1.6 Obstructive apnea: 1 Average large leak: 0.9 L/min Subjective Missed days of use due to: reports: mask issues (rash from wearing mask), illness (broke rib) Patient concerns: reports: other (skin irritation on both sides (cheeks) and of nostrils above lips). denies: aerophagia, mask discomfort, air blowing in eyes, mask leak noise, condensation in mask/hose, nasal congestion, dry mouth, nose, throat, epistaxis Observed to snore while using device: No Current pressure setting perceived as: comfortable On therapy, patient: reports: sleeping better, awakening more refreshed, being more awake and alert during the day, more rested overall. denies: drowsiness while driving Initial Huggins Sleepiness Scale score: 8 (in 2020) Current Huggins Sleepiness Scale score: 4 (04/24/23) Allergies and Home Medications Known drug allergies: No Drug allergies reviewed: Yes Home medication list reviewed: Yes (no changes) Allergy and home medication list: Allergies No Known Drug Allergies Allergy (Verified 04/23/23 13:43) Review of Systems Review of systems same as previous: No (BROKEN LEFT RIB 2 weeks ago) Physical Exam Vital signs obtained and entered by: ESTIVEN Cabral [place] Blood Pressure: 136/86 (LEFT ARM) Cuff size: regular Heart Rate: 92 O2 Saturation: 96 Height: 5 ft 10 in Weight: 209 lb 12.8 oz Weight change since last visit: 6 lb loss Body Mass Index: 30.1 BMI Classification: Obese Impression and Plan 1. Obstructive Sleep Apnea-Hypopnea Syndrome, severe, with good treatment compliance and good apnea control. On CPAP therapy, the patient has better sleep quality and is more rested overall. He has been having skin irritation or rash on his cheeks and soreness under his nose with his mask. He has been unable to get a replacement cushions because his prescription is needing to be updated. He does wash his mask cushion regularly. I advised him to try barriers for his mask and headgear to see if this will reduce skin irritation. I gave him information on a couple of companies that he can look at for the barriers. He voiced understanding. Patient's apnea severity and rationale for treatment to reduce apnea, improve sleep quality and reduce cardiovascular and cerebrovascular events was reviewed. I also reviewed the benefit of consistent device use of CPAP for diabetes. 2. Obesity, unspecified. Currently patients BMI is 30.1. Obesity increases the risk of apnea, CPAP pressure requirements and overall health risks especially cardiovascular and diabetes. Thus patient is advised to continue to try to lose weight. * Continue auto CPAP pressure at 9-11 cmH2O * Update supply prescription * Notify me if snoring with mask or feeling that the pressure is too much or too little * Attempt to lose weight * Call this office if any problems using CPAP * Return for follow up in 12 months, or sooner if concerns arise Counseling Topics: Spare mask, Weight loss health impact Prescriptions: Device supplies Follow up with Sleep Care in: 1 year Visit Type: In Office Time Spent with Patient (minutes): 20 Provider Statement: I spent 100% of the Face to Face Visit with the patient with greater than 50% spent counseling the patient and coordination of care.
[2023-04-24 14:25] VITALS: BP 136/86; O2SAT 96
== END 2023-04-24 13:44 | disposition home or self-care (01) ==
LOC: SC 13:43
PROVIDERS: ATTEND Nurse Practitioner Family
DX: G47.33 Obstructive sleep apnea (adult) (pediatric) (principal); E66.9 Obesity, unspecified; Z68.30 Body mass index [BMI] 30.0-30.9, adult
CPT/HCPCS: 99213; G0463; 99212